=== PATIENT | female | born 1970 | race Caucasian/White ===

== ENCOUNTER → 2020-10-13 | Outpatient (CLI) | payer OTHER ==
[~2020-10-13] MED LIST: HYDROCODON-ACE1 EAC4 PO; ZOFRAN ODT 4 MG4 MG SL
== END ==
LOC: RAD 10:33
DX: M25.842 Other specified joint disorders, left hand (principal)
CPT/HCPCS: 73130

== ENCOUNTER 2021-01-22 13:34 | Emergency (ER) | payer OTHER ==
[~2021-01-22] VITALS: Ht 162.6 cm; Wt 70.3 kg
[2021-01-22 15:01] LABS: HEMOGLOBIN 13.6 gm/dl (12.3-15.3); RED BLOOD COUNT 4.68 M/UL (4.00-5.10); WHITE BLOOD COUNT 3.8 K/UL (4.5-11.0)
[2021-01-22 15:18] LABS: BUN/CREATININE RATIO 10 (0-10)
[2021-01-22] MEDS ORDERED: PHENERGAN 12.12.5 M1 PO (16:05)
[2021-01-22] MEDS ORDERED: FLORASTOR250 MG PO (16:05)
== END 2021-01-22 18:00 | disposition home or self-care (01) ==
LOC: ER1 13:34
PROVIDERS: Physician Assistant Medical
DX: Z23 Encounter for immunization (principal); U07.1 COVID-19; Z90.89 Acquired absence of other organs; Z90.710 Acquired absence of both cervix and uterus; Z88.1 Allergy status to other antibiotic agents; Z88.2 Allergy status to sulfonamides
CPT/HCPCS: 71045; 80053; 81001; 83605; 85025; 96374; 99284; J2550; M0243

== ENCOUNTER → 2021-06-29 | Outpatient (CLI) | payer OTHER ==
[~2021-06-29] MED LIST changes: +FLORASTOR250 MG PO; +PHENERGAN 12.12.5 M1 PO
== END ==
LOC: RAD 13:03
DX: M54.2 Cervicalgia (principal); G89.29 Other chronic pain; M25.511 Pain in right shoulder; M47.812 Spondylosis without myelopathy or radiculopathy, cervical region; M48.02 Spinal stenosis, cervical region
CPT/HCPCS: 72040; 73030